=== PATIENT | male | born 1950 | race Two or more races ===

== ENCOUNTER 2022-07-04 11:31 | Emergency (ER) | payer OTHER ==
[~2022-07-04] VITALS: Ht 157.5 cm; Wt 66.7 kg
[2022-07-04] MEDS ORDERED: MONTELUKAST SOD10 MG PO (11:52)
== END 2022-07-04 15:38 | disposition home or self-care (01) ==
LOC: ER 11:31
DX: M79.661 Pain in right lower leg (principal)

== ENCOUNTER 2022-07-13 08:07 | Outpatient (CLI) | payer OTHER ==
[~2022-07-13 08:07] MED LIST: MONTELUKAST SOD10 MG PO
== END 2022-07-13 08:08 | disposition home or self-care (01) ==
LOC: LAB 08:07
DX: I10 Essential (primary) hypertension (principal); E78.2 Mixed hyperlipidemia; N41.1 Chronic prostatitis; E03.9 Hypothyroidism, unspecified; N39.8 Other specified disorders of urinary system; E55.9 Vitamin D deficiency, unspecified; Z12.11 Encounter for screening for malignant neoplasm of colon

== ENCOUNTER 2022-07-16 10:35 | Outpatient (CLI) | payer OTHER | END 2022-07-16 11:18 | disposition home or self-care (01) | LOC: LAB 10:35 | DX: I10 Essential (primary) hypertension (principal); E78.2 Mixed hyperlipidemia; N41.1 Chronic prostatitis; E03.9 Hypothyroidism, unspecified; N39.8 Other specified disorders of urinary system; E55.9 Vitamin D deficiency, unspecified; Z12.11 Encounter for screening for malignant neoplasm of colon ==

== ENCOUNTER 2023-05-17 09:10 | Outpatient (CLI) | payer OTHER | END 2023-05-17 09:11 | disposition home or self-care (01) | LOC: LAB 09:10 | DX: N41.1 Chronic prostatitis (principal); I10 Essential (primary) hypertension; E78.2 Mixed hyperlipidemia; Z12.11 Encounter for screening for malignant neoplasm of colon; E55.9 Vitamin D deficiency, unspecified; E03.9 Hypothyroidism, unspecified; R73.9 Hyperglycemia, unspecified ==

== ENCOUNTER → 2023-05-20 09:36 | Outpatient (CLI) | payer OTHER | END | disposition home or self-care (01) | LOC: LAB 09:36 | DX: N41.1 Chronic prostatitis (principal); I10 Essential (primary) hypertension; E78.2 Mixed hyperlipidemia; Z12.11 Encounter for screening for malignant neoplasm of colon; E55.9 Vitamin D deficiency, unspecified; E03.9 Hypothyroidism, unspecified; R73.9 Hyperglycemia, unspecified ==

== ENCOUNTER 2023-05-20 09:44 | Outpatient (CLI) | payer OTHER | END 2023-05-20 16:22 | disposition home or self-care (01) | LOC: SONOGRAMA 09:44 | DX: R10.32 Left lower quadrant pain (principal); R11.0 Nausea ==

== ENCOUNTER 2023-08-05 09:10 | Outpatient (CLI) | payer OTHER ==
[2023-08-05 10:20] LABS: HEMATOCRIT 42.4 % (39.0-48.0); HEMOGLOBIN 14.1 g/dL (13-16.00); MEAN CELL VOLUME 87.7 fL (80.0-100.00); MEAN CORPUSCULAR HEMOGLOBIN 29.3 pg (27.00-32.0); MEAN CORPUSCULAR HGB CONC 33.4 g/dl (32.0-36.0); PLATELET COUNT 195 K/uL (150-450); RED BLOOD COUNT 4.83 M/uL (4.00-6.00); RED CELL DISTRIBUTION WIDTH 13.8 % (11.5-14.5)
[2023-08-05 11:00] LABS: ALBUMIN 3.6 gm/dL (3.4-5.0); BILIRUBIN TOTAL 0.55 mg/dL (0.3-1.2); CALCIUM 8.7 mg/dL (8.5-10.1); CREATININE SERUM 0.97 mg/dL (0.70-1.30); GFR 75.66; GLOBULINA 3.5 G/DL (2.4-3.5); POTASSIUM 4.28 mEq/L (3.5-5.1); TOTAL PROTEIN 7.1 gm/dL (6.4-8.2)
[2023-08-05 11:17] LABS: INR 1.03; PARTIAL THROMBOPLASTIN TIME 29.3 SECONDS (22.0-34.0); PROTHROMBIN TIME 10.8 SECONDS (9.0-11.5)
== END 2023-08-05 09:11 | disposition home or self-care (01) ==
LOC: LAB 09:10 → EKG 09:10 → LAB 09:11
PROVIDERS: ATTEND Ophthalmology
DX: D68.8 Other specified coagulation defects (principal); H25.013 Cortical age-related cataract, bilateral; I11.9 Hypertensive heart disease without heart failure

== ENCOUNTER 2023-08-05 09:41 | Outpatient (CLI) | payer OTHER | END 2023-08-05 09:48 | disposition home or self-care (01) | LOC: RAD 09:41 | PROVIDERS: ATTEND Ophthalmology | DX: Z98.41 Cataract extraction status, right eye (principal) ==

== ENCOUNTER 2023-08-16 08:13 | Outpatient (CLI) | payer OTHER | END 2023-08-16 08:15 | disposition home or self-care (01) | LOC: LAB 08:13 | PROVIDERS: ATTEND Internal Medicine | DX: E03.9 Hypothyroidism, unspecified (principal) ==

== ENCOUNTER 2023-10-09 07:28 | Outpatient (CLI) | payer OTHER ==
[2023-10-09 08:16] LABS: HEMATOCRIT 43.3 % (39.0-48.0); HEMOGLOBIN 14.8 g/dL (13-16.00); MEAN CELL VOLUME 85.8 fL (80.0-100.00); MEAN CORPUSCULAR HEMOGLOBIN 29.2 pg (27.00-32.0); MEAN CORPUSCULAR HGB CONC 34.1 g/dl (32.0-36.0); PLATELET COUNT 207 K/uL (150-450); RED BLOOD COUNT 5.05 M/uL (4.00-6.00); RED CELL DISTRIBUTION WIDTH 13.9 % (11.5-14.5)
[2023-10-09 08:17] LABS: PH,URINE 5.5 (5.0-8.0); URINE APPEARANCE Clear; URINE BILIRRUBIN Negative (NEGATIVE); URINE BLOOD Negative; URINE COLOR Yellow; URINE GLUCOSE Negative (NEGATIVE); URINE LEUKOCYTE Moderate; URINE NITRATE Negative; URINE PROTEIN Negative (NEGATIVE); URINE UROBILINOGEN 0.2 E.U./dl
[2023-10-09 08:18] LABS: URINE EPITHELIAL CELLS 8.3 uL (0.0-38.8); URINE RBC 2.7 uL (0.0-20.8); URINE WBC 308.7 uL (0.0-23.2)
[2023-10-09 08:27] LABS: URINE BACTERIA > 9821.5 uL (0.0-1933)
[2023-10-09 09:20] LABS: CHOL HDL RATIO 4.7 (0-5.0); T4 TOTAL 11.19 UG/DL (4.5-12.1)
[2023-10-09 09:23] LABS: TSH 0.342 uIU/mL (0.358-3.74)
== END 2023-10-09 07:37 | disposition home or self-care (01) ==
LOC: LAB 07:28
PROVIDERS: ATTEND Internal Medicine
DX: Z01.810 Encounter for preprocedural cardiovascular examination (principal); I10 Essential (primary) hypertension; M54.50 Low back pain, unspecified; E03.9 Hypothyroidism, unspecified; E78.9 Disorder of lipoprotein metabolism, unspecified; E55.9 Vitamin D deficiency, unspecified

== ENCOUNTER 2024-01-15 08:46 | Outpatient (CLI) | payer OTHER ==
[2024-01-15 09:49] LABS: HEMATOCRIT 40.7 % (39.0-48.0); HEMOGLOBIN 13.9 g/dL (13-16.00); MEAN CORPUSCULAR HGB CONC 34.1 g/dl (32.0-36.0); PLATELET COUNT 194 K/uL (150-450); RED BLOOD COUNT 4.78 M/uL (4.00-6.00)
== END 2024-01-15 08:47 | disposition home or self-care (01) ==
LOC: LAB 08:46
PROVIDERS: ATTEND Specialist
DX: J45.40 Moderate persistent asthma, uncomplicated (principal)

== ENCOUNTER → 2025-02-17 08:47 | Outpatient (CLI) | payer OTHER ==
[2025-02-17 09:59] LABS: PH,URINE 5.5 (5.0-8.0); URINE APPEARANCE Clear; URINE BILIRRUBIN Negative (NEGATIVE); URINE BLOOD Negative; URINE COLOR Yellow; URINE GLUCOSE Negative (NEGATIVE); URINE KETONE Negative (NEGATIVE); URINE LEUKOCYTE Small; URINE NITRATE Negative; URINE PROTEIN Negative (NEGATIVE); URINE UROBILINOGEN 0.2 E.U./dl
[2025-02-17 10:04] LABS: URINE EPITHELIAL CELLS 4.5 uL (0.0-38.8); URINE WBC 55.7 uL (0.0-23.2)
[2025-02-17 10:12] LABS: BASO % 0.6 % (0.1-1.2); EOS # 0.45 (0.04-0.54); EOS % 6.8 % (0.7-7.0); HEMATOCRIT 45.9 % (40.1-51.0); HEMOGLOBIN 15.1 g/dL (13.7-17.5); LYMPH # 1.43 (1.18-3.74); LYMPH % 21.5 % (19.3-53.1); MEAN CORPUSCULAR HEMOGLOBIN 28.7 pg (25.6-32.2); MONO # 0.52 (0.24-0.82); MONO % 7.8 % (4.7-12.5); NEUT # 4.13 (1.56-6.13); NEUT % 62.2 % (34.0-71.1); PLATELET COUNT 184 K/uL (163-369); RED BLOOD COUNT 5.26 M/uL (4.63-6.08); RED CELL DISTRIBUTION WIDTH 12.9 % (11.6-14.4)
[2025-02-17 10:23] LABS: URINE BACTERIA > 9821.5 uL (0.0-1933); URINE RBC 1.1 uL (0.0-20.8)
[2025-02-17 10:54] LABS: ob NEGATIVE (NEGATIVE)
[2025-02-17 11:17] LABS: ALBUMIN 3.7 gm/dL (3.4-5.0); BILIRUBIN TOTAL 0.51 mg/dL (0.3-1.2); CALCIUM 8.2 mg/dL (8.5-10.1); CHOL HDL RATIO 3.8 (0-5.0); CREATININE SERUM 0.89 mg/dL (0.70-1.30); GFR 83.33; GLOBULINA 3.3 G/DL (2.4-3.5); POTASSIUM 4.4 mEq/L (3.5-5.1); PROSTATIC SPECIFIC ANTIGEN 1.05 NG/ML (0.010-4.00); TSH 3.03 uIU/mL (0.358-3.74)
[2025-02-17 11:45] LABS: T4 TOTAL 7.71 UG/DL (4.5-12.1)
== END | disposition home or self-care (01) ==
LOC: LAB 08:47
PROVIDERS: ATTEND Internal Medicine
DX: I10 Essential (primary) hypertension (principal); E03.9 Hypothyroidism, unspecified; E78.9 Disorder of lipoprotein metabolism, unspecified; E55.9 Vitamin D deficiency, unspecified; N41.0 Acute prostatitis; Z12.11 Encounter for screening for malignant neoplasm of colon

== ENCOUNTER → 2025-06-08 08:53 | Outpatient (CLI) | payer OTHER ==
[2025-06-08 10:04] LABS: BASO % 0.3 % (0.1-1.2); EOS # 0.38 (0.04-0.54); EOS % 6.6 % (0.7-7.0); LYMPH # 1.37 (1.18-3.74); LYMPH % 23.6 % (19.3-53.1); MEAN PLATELET VOLUME 9.30 fl (9.4-12.4); MONO # 0.47 (0.24-0.82); MONO % 8.1 % (4.7-12.5); NEUT # 3.53 (1.56-6.13); NEUT % 60.9 % (34.0-71.1); RED CELL DISTRIBUTION WIDTH 13.0 % (11.6-14.4)
[2025-06-08 10:05] LABS: URINE APPEARANCE Clear; URINE BILIRRUBIN Negative (NEGATIVE); URINE BLOOD Negative; URINE COLOR Yellow; URINE GLUCOSE Negative (NEGATIVE); URINE KETONE Trace (NEGATIVE); URINE LEUKOCYTE Small; URINE NITRATE Positive; URINE PROTEIN Negative (NEGATIVE); URINE UROBILINOGEN 1.0 E.U./dl
[2025-06-08 10:10] LABS: URINE EPITHELIAL CELLS 5.0 uL (0.0-38.8); URINE WBC 109.6 uL (0.0-23.2)
[2025-06-08 10:22] LABS: URINE RBC 1.0 uL (0.0-20.8)
[2025-06-08 10:23] LABS: URINE BACTERIA > 9821.5 uL (0.0-1933); URINE CAST 0.00 uL (0.0-1.40)
[2025-06-08 10:40] LABS: ALT/SGPT 29.0 U/L (12-78); AST/SGOT 19.0 U/L (15-37); BILIRUBIN TOTAL 0.65 mg/dL (0.3-1.2); BUN CREA RATIO 22.0 (7.0-25.0); CREATININE SERUM 0.94 mg/dL (0.70-1.30); GFR 78.23; GLOBULINA 3.2 G/DL (2.4-3.5); GLUCOSE FASTING 91.0 mg/dL (65-100); OSMOLALITY SERUM 284.0 MOSM/KG (275-295)
== END | disposition home or self-care (01) ==
LOC: LAB 08:53
PROVIDERS: ATTEND Internal Medicine
DX: E03.9 Hypothyroidism, unspecified (principal); E78.9 Disorder of lipoprotein metabolism, unspecified; E55.9 Vitamin D deficiency, unspecified; I10 Essential (primary) hypertension; J30.9 Allergic rhinitis, unspecified; J45.30 Mild persistent asthma, uncomplicated; J44.9 Chronic obstructive pulmonary disease, unspecified; R05.3 Chronic cough